=== PATIENT | male | born 1985 | race Caucasian/White ===

== ENCOUNTER 2020-05-23 21:16 | Emergency (ER) | payer OTHER ==
[2020-05-23 21:22] VITALS: RESP 18
[2020-05-23] MEDS ORDERED: EPINEPHrine 1 MG/ML 1 ML AMP IM STA (21:30)
[2020-05-23] MEDS ORDERED: dexAMETHasone 4 MG TAB PO STA (21:31)
[2020-05-23] MEDS ORDERED: FAMOTIDINE 20 MG TAB PO STA (21:32)
--- NOTE | 2020-05-23 21:34 | ED ---
General Adult HPI - General Chief complaint: Allergic Reaction Stated complaint: Allergic Reaction to bee sting Time Seen by Provider: 05/23/20 21:26 Source: patient Mode of arrival: ambulatory Limitations: no limitations - History of Present Illness Initial comments: Dictation was produced using [employer] dictation software. please excuse any grammatical, word or spelling errors. This patient was cared for during a federal and state declared state of emergency secondary to Covid 19 Chief Complaint: 34-year-old male presents with feelings of throat closure and rash after being stung by a bee. History of Present Illness: 34-year-old male who stung by a bee approximate one- hour prior to arrival. Patient states that he started to develop swelling around his face. He also developed a rash. Patient was at home given himself some Benadryl and monitored his symptoms. Certainly feeling maybe he was developing some shortness of breath. He does have mild sensation of his throat feeling like it swelling. Patient has no history of bee ALLERGIES. States she's been stung 10 other times without any adverse effects. He has no abd ominal pain. The ROS documented in this emergency department record has been reviewed and confirmed by me. Those systems with pertinent positive or negative responses have been documented in the HPI. All other systems are other negative and/or noncontributory. PHYSICAL EXAM: General Impression: Alert and oriented x3, not in acute distress HEENT: Normocephalic atraumatic, extra-ocular movements intact, pupils equal and reactive to light bilaterally, mucous membranes moist. Cardiovascular: Heart regular rate and rhythm Chest: Able to complete full sentences, no retractions, no tachypnea, no wheezing Abdomen: abdomen soft, non-tender, non-distended, no organomegaly Musculoskeletal: Pulses present and equal in all extremities, no peripheral edema Motor: no focal deficits noted Neurological: CN II-XII grossly intact, no focal motor or sensory deficits noted Skin: Diffuse urticaria Psych: Normal affect and mood ED course: 34-year-old male presents with ALLERGIC reaction after bee sting. Patient does have some symptoms of sensation like his throat swelling. He reports that his voice is a little raspy although it's not entirely that obvious to me. As upon arrival are within acceptable limits. Consider patient is complaining of upper airway symptoms did recommend that patient be given IM epinephrine. he also given Decadron and Pepcid. Patient observed in the emergency department from been stable medical condition. Patient prescription for EpiPen. He is shortly to avoid these at all costs. He is told that EpiPen on him at all times. Patient told that if he gets some IV he should administer epi to himself come straight to the emergency department. Patient agreeable. Patient be discharged. - Related Data Home Medications Medication Instructions Recorded Confirmed diphenhydrAMINE [Benadryl] 50 mg PO ONCE PRN 05/23/20 05/23/20 Previous Rx's Medication Instructions Recorded EPINEPHrine (Auto Inject) [Epipen] 0.3 mg IM ONCE PRN #2 pen 05/23/20 Allergies Allergy/AdvReac Type Severity Reaction Status Date / Time bee venom protein (honey bee) Allergy Swelling Verified 05/23/20 21:43 Review of Systems ROS Statement: Those systems with pertinent positive or pertinent negative responses have been documented in the HPI. ROS Other: All systems not noted in ROS Statement are negative. Past Medical History Past Medical History: No Reported History History of Any Multi-Drug Resistant Organisms: None Reported Past Surgical History: No Surgical Hx Reported Smoking Status: Never smoker Past Alcohol Use History: None Reported Past Drug Use History: None Reported General Exam Limitations: no limitations Course Vital Signs 05/23/20 05/23/20 21:17 21:41 Temperature 97.7 F Pulse Rate 87 82 Respiratory 18 18 Rate Blood Pressure 107/69 124/89 O2 Sat by Pulse 97 97 Oximetry Disposition Clinical Impression: Anaphylaxis Disposition: HOME SELF-CARE Condition: Good Instructions (If sedation given, give patient instructions): Anaphylaxis (ED) Prescriptions: EPINEPHrine (Auto Inject) [Epipen] 0.3 mg IM ONCE PRN #2 pen PRN Reason: Anaphylaxis Is patient prescribed a controlled substance at d/c from ED?: No Referrals: None,Stated [Primary Care Provider] - 1-2 days Time of Disposition: 22:20
[2020-05-23 23:18] VITALS: BP 119/73; PULSE 81; TEMP 97.9
== END 2020-05-23 23:10 | disposition home or self-care (01) ==
LOC: EC 21:16
DX: T63.441A Toxic effect of venom of bees, accidental (unintentional), initial encounter (principal); L50.9 Urticaria, unspecified; T78.2XXA Anaphylactic shock, unspecified, initial encounter; Z91.030 Bee allergy status
CPT/HCPCS: 99284; 96372; J8540; J0171

== ENCOUNTER → 2022-08-06 | Outpatient (CLI) | payer OTHER ==
--- NOTE | 2022-08-06 12:44 | US ---
EXAMINATION TYPE: US venous doppler duplex LE RT DATE OF EXAM: 08/06/2022 11:57 AM COMPARISON: NONE CLINICAL HISTORY: I80.9 PHLEBITIS AND THROMBOPHLEBITIS OF UNSPECIFIED. Recent meniscus tear on right knee, pain in calf now, no h/o dv SIDE PERFORMED: Right TECHNIQUE: The lower extremity deep venous system is examined utilizing real time linear array sonog veda with graded compression, doppler sonography and color-flow sonography. VESSELS IMAGED: Common Femoral Vein Deep Femoral Vein Greater Saphenous Vein * Femoral Vein Popliteal Vein Small Saphenous Vein * Proximal Calf Veins (* superficial vessels) Right Leg: Negative for DVT Grayscale, color doppler, spectral doppler imaging performed of the deep veins of the right lower ext remity. There is normal flow, compressibility, vascular waveforms. IMPRESSION: No ultrasound evidence for acute DVT in the right lower extremity.
== END | disposition home or self-care (01) ==
LOC: RADUSWWP 11:23
PROVIDERS: ATTEND Orthopaedic Surgery
DX: M84.361D Stress fracture, right tibia, subsequent encounter for fracture with routine healing (principal); M23.231 Derangement of other medial meniscus due to old tear or injury, right knee; M94.261 Chondromalacia, right knee; I80.9 Phlebitis and thrombophlebitis of unspecified site